=== PATIENT | female | born 1995 | race Caucasian/White ===

== ENCOUNTER 2024-04-25 09:19 | Emergency (ER) | payer OTHER ==
[~2024-04-25] VITALS: Ht 170.2 cm; Wt 115.8 kg
[2024-04-25] MEDS ORDERED: CYCL-707 (09:34)
[2024-04-25] MEDS ORDERED: HYDR-3713 (09:34)
[2024-04-25] MEDS ORDERED: OXYC-517 PO (13:29)
[2024-04-25] MEDS ORDERED: METH-1164 PO (13:29)
[2024-04-25 13:44] VITALS: BP 147/89; TEMP 97.4; O2SAT 98
== END 2024-04-25 13:50 | disposition home or self-care (01) ==
LOC: M ED 09:19
DX: M51.16 Intervertebral disc disorders with radiculopathy, lumbar region (principal); Z88.0 Allergy status to penicillin; Z88.2 Allergy status to sulfonamides; Z79.1 Long term (current) use of non-steroidal anti-inflammatories (NSAID); Z79.899 Other long term (current) drug therapy